=== PATIENT | female | born 1975 | race Caucasian/White ===

== ENCOUNTER → 2017-02-07 | Outpatient (CLI) | payer OTHER | LOC: FIMAGING 09:23 | DX: Z12.31 Encounter for screening mammogram for malignant neoplasm of breast (principal) | CPT/HCPCS: G0202 ==

== ENCOUNTER → 2018-02-13 | Outpatient (CLI) | payer OTHER | LOC: FIMAGING 10:51 | PROVIDERS: ATTEND Family Medicine | DX: Z12.31 Encounter for screening mammogram for malignant neoplasm of breast (principal) ==

== ENCOUNTER → 2018-05-26 | Outpatient (CLI) | payer OTHER | LOC: FIMAGING 10:16 | PROVIDERS: ATTEND Internal Medicine Cardiovascular Disease | DX: N28.89 Other specified disorders of kidney and ureter (principal); K76.0 Fatty (change of) liver, not elsewhere classified; R16.0 Hepatomegaly, not elsewhere classified ==

== ENCOUNTER 2018-10-05 03:32 | Inpatient (IN) | payer OTHER ==
--- NOTE | 2018-10-05 04:14 | EDPHY ---
H & P Stated Complaint: bilateral flank pain,abdominal pain,vomiting for 2 days Time Seen by Provider: 10/05/18 03:37 HPI/ROS: CC: Abdominal pain x 1 day HPI: This 43-year-old female with past medical history including hypertension and kidney stones presents to emergency department today complaining of abdominal pain. She states this sharp pain started yesterday at 3:00 p.m. but she had woken up in the morning with the feeling that she had air bubbles in her abdomen. The pain is now 10/10 and across the middle of her abdomen. It radiates to her back on both sides. She vomited once approximately 1 hr ago. She denies fever but has chills. She states she ate junk food all day a couple of days ago. She does not smoke and rarely drinks alcohol. She denies dysuria, hematuria, vaginal discharge, constipation, diarrhea. She is and has had a BTL. REVIEW OF SYSTEMS: Constitutional: See HPI. Eyes: No discharge. ENT: No sore throat. Respiratory: No cough, no shortness of breath. Cardiac: No chest pain, no palpitations. Gastrointestinal: See HPI. Genitourinary: No hematuria. No dysuria. Musculoskeletal: See HPI. Skin: No rashes. Neurological: No headache. Source: Patient Exam Limitations: No limitations - Personal History LMP (Females 10-55): 8-14 Days Ago Current Tetanus Diphtheria and Acellular Pertussis (TDAP): Yes Tetanus Vaccine Date: unsure - Medical/Surgical History PMH: PMH: Hypertension, palpitations, kidney stones, vaginal HSV PSH: , bilateral tubal ligation FH: Mother has a history of hypertension and high cholesterol; father has a history of hypertension, high cholesterol, gout, prostate cancer. NKDA Meds: Include losartan-hydrochlorothiazide, metoprolol, valacyclovir, Myrbetriq First day last menstrual period was approximately 2 weeks ago. She is 2 para 2. Her last Pap smear was normal. Primary care providers are the [facility]. 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 Hx Asthma: No Hx Chronic Respiratory Disease: No Hx Diabetes: No Hx Cardiac Disease: No Hx Renal Disease: No Hx Cirrhosis: No Hx Alcoholism: No Hx HIV/AIDS: No Hx Splenectomy or Spleen Trauma: No Other PMH: HTN, , migraines,irregular heartbeat,kidney stones - Social History Smoking Status: Never smoked Additional Social History: The patient is and has an 8-year-old and a 2-year-old. She denies tobacco products. She rarely drinks alcohol. She has rare marijuana use. No other recreational drugs. - Physical Exam Exam: General Appearance: Alert, moderate distress. Eyes: Pupils equal and round no pallor or injection. ENT, Mouth: Mucous membranes are moist. Respiratory: There are no retractions, lungs are clear to auscultation. Cardiovascular: Regular rate and rhythm. Gastrointestinal: Abdomen is soft, diffusely tender but more so across the upper abdomen, especially the epigastric and RUQ region. No R/G/R. Hyperactive bowel sounds. Neurological: Awake and alert, sensory and motor exams grossly normal. Skin: Warm and dry, no rashes. Musculoskeletal: Neck is supple, nontender. Extremities are symmetrical, full range of motion. Psychiatric: Patient is oriented X 3, there is no agitation. DIFFERENTIAL DIAGNOSIS: After history and physical exam differential diagnosis was considered for but not limited to and in no particular order: Gastritis, cholecystitis, cholelithiasis, pancreatitis, appendicitis, colitis, ileus, bowel obstruction, pyelonephritis, UTI, ectopic . Constitutional: Initial Vital Signs Temperature (C) 98.4 F 10/05/18 03:41 Heart Rate 72 10/05/18 03:41 Respiratory Rate 20 10/05/18 03:41 Blood Pressure 184/102 H 10/05/18 03:41 O2 Sat (%) 97 10/05/18 03:41 O2 Delivery Mode Room Air Allergies/Adverse Reactions: No Known Allergies Allergy (Verified 10/05/18 03:38) Home Medications: Medication Instructions Recorded Hydrochlorothiazide [HCTZ (*)] 05/18/18 Metoprolol Succinate [Kapspargo 05/18/18 Sprinkle] valACYclovir [Valtrex (*)] 05/18/18 Losartan-Hctz 100-12.5 mg Tab 10/05/18 Myrbetriq 10/05/18 Medical Decision Making - Diagnostics Imaging Results: The preliminary radiology report of the CT scan of the patient's abdomen and pelvis with IV contrast shows 1. Cystic lesion in the tail of the pancreas measuring nearly 4 cm in diameter. 2. Hepatomegaly and hepatic steatosis. 3. Nonobstructing 3 mm stone in the inferior pole of the right kidney. Imaging: Discussed imaging studies w/ yard caller Radiologist ED Course/Re-evaluation: The patient was seen and examined. Vital signs reviewed and revealed the patient to be afebrile but hypertensive throughout her stay. She last took her blood pressure meds at 7:00 p.m. last evening per usual. The patient's pain improved somewhat after 25 mcg of fentanyl and 15 mg of Toradol IV push. She also required 4 mg of Zofran IV push for her nausea. Her white count was slightly elevated and her comprehensive metabolic panel was mostly unremarkable. A CT scan of her abdomen and pelvis revealed a cystic lesion in the tail of the pancreas measuring nearly 4 cm in diameter, hepatomegaly and hepatic steatosis, and a nonobstructing 3 mm stone in the inferior pole of the right kidney. Her lipase eventually returned elevated at 3650. She was given a L of IV fluids and kept NPO. She will be admitted to the inpatient unit at the [facility] for further evaluation and treatment. Report given to accepting physician, Dr. Juani Ricks. - Data Points Laboratory Results: 10/05/18 10/05/18 10/05/18 03:55 03:49 03:49 POC Sodium 142 mEq/L mEq/L (135-145) POC Potassium 3.8 mEq/L mEq/L (3.3-5.0) POC Chloride 105.0 mEq/L mEq/L (97-110) POC Total CO2 23 mEq/L mEq/L (22-31) POC BUN 18 mg/dL mg/dL (7-23) POC Creatinine 0.9 mg/dL mg/dL (0.6-1.0) POC Glucose 111 mg/dL H mg/dL (70-100) POC Calcium 10.2 mg/dL mg/dL (8.5-10.4) POC Total Bilirubin 0.6 mg/dL mg/dL (0.1-1.4) POC AST 31 IU/L IU/L (14-46) POC ALT 35 IU/L IU/L (9-52) POC Alk Phosphatase 72 IU/L IU/L (38-126) POC Total Protein 8.6 g/dL H g/dL (6.3-8.2) POC Albumin 4.2 g/dL g/dL (3.5-5.0) Lipase 3650 IU/L H IU/L (23-300) Urine RBC 1-3 /hpf /hpf (0-3) Urine WBC 3-5 /hpf H /hpf (0-3) Ur Epithelial Cells TRACE /lpf /lpf (NONE-1+) Urine Bacteria TRACE /hpf H /hpf (NONE SEEN) Urine Mucus TRACE /lpf /lpf (NONE-1+) Medications Given: Discontinued Medications Fentanyl (Sublimaze) 25 mcg IVP EDNOW ONE Stop: 10/05/18 04:17 Last Admin: 10/05/18 04:26 Dose: 25 mcg Ketorolac Tromethamine (Toradol) 15 mg IVP EDNOW ONE Stop: 10/05/18 05:12 Last Admin: 10/05/18 05:20 Dose: 15 mg Ondansetron HCl (Zofran) 4 mg IVP EDNOW ONE Stop: 10/05/18 05:18 Last Admin: 10/05/18 05:20 Dose: 4 mg Point of Care Test Results: CBC CBC Collection Date 10/05/18 CBC Collection Time 03:45 WBC 12.26 RBC 4.51 HGB 14.2 HCT 40.6 PLT 220 Neut # 8.37 Neut 68.2 LYMPH # 3.00 LYMPH 24.5 MCV 90.0 Chemistry 10/05/18 03:55 POC Sodium 142 mEq/L mEq/L (135-145) POC Potassium 3.8 mEq/L mEq/L (3.3-5.0) POC Chloride 105.0 mEq/L mEq/L (97-110) POC Total CO2 23 mEq/L mEq/L (22-31) POC BUN 18 mg/dL mg/dL (7-23) POC Creatinine 0.9 mg/dL mg/dL (0.6-1.0) POC Glucose 111 mg/dL H mg/dL (70-100) POC Calcium 10.2 mg/dL mg/dL (8.5-10.4) POC Total Bilirubin 0.6 mg/dL mg/dL (0.1-1.4) POC AST 31 IU/L IU/L (14-46) POC ALT 35 IU/L IU/L (9-52) POC Alk Phosphatase 72 IU/L IU/L (38-126) POC Total Protein 8.6 g/dL H g/dL (6.3-8.2) POC Albumin 4.2 g/dL g/dL (3.5-5.0) Urine Collection Date 10/05/18 Collection Time 03:49 HCG Results Negative Urine Dip Collection Date 10/05/18 Collection Time 03:49 Specific [place]us (1.002-1.030) 1.025 PH (5.0-7.5) 6.0 Leukocytes (Negative) Trace Nitrites (Negative) Negative Protein (Negative) 1+ Glucose (Negative) Negative Ketones (Negative) Negative Urobilnogen (0.2-1.0 EU) 0.2 Bilirubin (Negative) Negative Blood (Negative) Trace Departure - Departure Disposition: [facility] Inpatient Acute Clinical Impression: Abdominal pain, Renal calculus, right, Pancreatic cyst, Pancreatitis, acute, Hypertension Condition: Good
[2018-10-05] MEDS ORDERED: fentaNYL 100 MCG/2 ML INJ IVP ONE (04:16)
[2018-10-05] MEDS ORDERED: IOPAMIDOL (ISOVUE-300) 100 ML BTL ONE (04:34)
[2018-10-05] MEDS ORDERED: KETOROLAC 15 MG/1 ML SDV IVP ONE (05:11)
[2018-10-05] MEDS ORDERED: ONDANSETRON 4 MG/2 ML VIAL ONE (05:16)
[2018-10-05] MEDS ORDERED: ONDANSETRON 4 MG/2 ML VIAL IVP ONE (05:17)
[2018-10-05] MEDS ORDERED: HYDROCOD/APAP 5/325 PREPACK#6 BTL TAKEHOME ONE (05:48)
[2018-10-05] MEDS ORDERED: ONDANSETRON 4MG PREPACK#2 BTL TAKEHOME ONE (05:49)
[2018-10-05] MEDS ORDERED: NS 1,000 ML IV ONE (06:13)
[2018-10-05] MEDS ORDERED: ONDANSETRON DISINTEGRATING 4 MG TAB PO PRN (07:13)
[2018-10-05] MEDS ORDERED: HYDROmorphONE/DILAUDID 1 MG/ML INJ IVP PRN (07:13)
[2018-10-05] MEDS ORDERED: LORazepam 2 MG/ML INJ IVP PRN (07:13)
[2018-10-05] MEDS ORDERED: NS 1,000 ML IV SCH (07:15)
[2018-10-05] MEDS ORDERED: NS W/ 20 KCl/L 1,000 ML IV SCH (08:30)
--- NOTE | 2018-10-05 08:55 | PDGENHP ---
History and Physical - Chief Complaint abdominal pain - History of Present Illness 43 yo female with h/o hypertension and nephrolithiasis presented to ED with abdominal pain. Her pain started yesterday morning and she described this as feeling bloated, like she couldn't pass a gas bubble in her stomach. Later in the afternoon, she had a linn, ice cream and a salad. Her pain became worse after this. During the night, she vomited once. No hematemesis or coffee ground emesis. She reports increased BM frequency, but no diarrhea, melena or BRBPR. No fevers or chills. Currently, her pain is 3-4/10 and is epigastric and RUQ. No CP or SOB. She denies regular heavy etoh use, but did mention having several drinks in the evening a couple of nights ago before the onset of her pain. She also has a family h/o hyperlipidemia. She denies h/o gallstones. She mentions several new medications. She has been on HCTZ for ~2 years. She was on Losartan in the past, which was d/c'd for unclear reasons. She recently restarted Losartan as well as Myrbetriq. There is no family h/o pancreatitis. In the ED, her lipase is 3600. Abdominal CT was abnormal with a possible cyst on the tail of the pancreas, formal radiology report is pending. She is admitted for further management. History Information - Allergies/Home Medication List Allergies/Adverse Reactions: No Known Allergies Allergy (Verified 10/05/18 03:38) Home Medications: Hydrochlorothiazide [HCTZ (*)] 25 mg PO DAILY 10/05/18 [Last Taken 10/04/18] Losartan Potassium [Cozaar 50 mg (*)] 50 mg PO HS 10/05/18 [Last Taken 10/04/18] Metoprolol Succinate Xr [Toprol Xl 50 mg (*)] 50 mg PO HS 10/05/18 [Last Taken 10/04/18] Mirabegron [Myrbetriq] 50 mg PO HS 10/05/18 [Last Taken 10/04/18] valACYclovir [Valtrex (*)] 500 mg PO DAILY 10/05/18 [Last Taken 10/03/18] I have personally reviewed and updated: family history, medical history, social history, surgical history - Past Medical History hypertension Additional medical history: nephrolithiasis - Surgical History Reports: no pertinent surgical hx - Family History Additional family history: mom and dad with hyperlipidemia - Social History Smoking Status: Never smoked Alcohol Use: Other (reports a few drinks a couple days a week) Drug Use: None Additional social history: Lives independently Review of Systems Review of Systems: ROS: 10pt was reviewed & negative except for what was stated in HPI & below Physical Exam Physical Exam: Temp Pulse Resp BP Pulse Ox 37.4 C 74 14 163/109 H 97 10/05/18 07:52 10/05/18 07:52 10/05/18 07:52 10/05/18 07:52 10/05/18 07:52 Constitutional: no apparent distress Eyes: PERRL Ears, Nose, Mouth, Throat: moist mucous membranes Cardiovascular: regular rate and rhythym, no murmur, rub, or gallop Respiratory: no respiratory distress, clear to auscultation Gastrointestinal: other (soft, nd, +RUQ TTP, mild epigastric TTP, no r/r/g, +BS) Skin: warm Musculoskeletal: full muscle strength Neurologic: AAOx3 Psychiatric: interacting appropriately Lab Data & Imaging Review 10/05/18 08:59 10/05/18 03:45 POC Sodium 142 mEq/L (135-145) 10/05/18 03:55 POC Potassium 3.8 mEq/L (3.3-5.0) 10/05/18 03:55 POC Chloride 105.0 mEq/L (97-110) 10/05/18 03:55 POC Total CO2 23 mEq/L (22-31) 10/05/18 03:55 POC BUN 18 mg/dL (7-23) 10/05/18 03:55 POC Creatinine 0.9 mg/dL (0.6-1.0) 10/05/18 03:55 POC Glucose 111 mg/dL (70-100) H 10/05/18 03:55 POC Calcium 10.2 mg/dL (8.5-10.4) 10/05/18 03:55 POC Total Bilirubin 0.6 mg/dL (0.1-1.4) 10/05/18 03:55 POC AST 31 IU/L (14-46) 10/05/18 03:55 POC ALT 35 IU/L (9-52) 10/05/18 03:55 POC Alk Phosphatase 72 IU/L (38-126) 10/05/18 03:55 POC Total Protein 8.6 g/dL (6.3-8.2) H 10/05/18 03:55 POC Albumin 4.2 g/dL (3.5-5.0) 10/05/18 03:55 Lipase 3650 IU/L (23-300) H 10/05/18 03:49 Urine RBC 1-3 /hpf (0-3) 10/05/18 03:49 Urine WBC 3-5 /hpf (0-3) H 10/05/18 03:49 Ur Epithelial Cells TRACE /lpf (NONE-1+) 10/05/18 03:49 Urine Bacteria TRACE /hpf (NONE SEEN) H 10/05/18 03:49 Urine Mucus TRACE /lpf (NONE-1+) 10/05/18 03:49 Assessment & Plan Assessment: Acute pancreatitis - unclear etiology, ?hastened by recent etoh intake though she denies heavy etoh use. Drug induced pancreatitis is a possibilty with recent resumption of losartan, which class Ib risk. HCTZ is also class III risk. Consider gallstones with RUQ tenderness, though LFT's nl and GB nl on CT. CT personally reviewed/interp, possible cyst tail of the pancreas. She is hemodynamically stable -NPO for bowel rest, IVF's for hydration -pain control -MRI w and w/o contrast to further evaluate pancreatic tail cyst -hold losartan and HCTZ for now, though she can likely resume the latter as she has been on this for ~2 years. -GI consult requested -check lipid panel -discussed avoidance of alcohol Hypertension - will hold losartan and HCTZ as above. Change Metoprolol to Labetalol for BP control. -up-titrate Labetalol as indicated Nephrolithiasis - sounds like stone is within the kidney parenchyma, unlikely to be symptomatic -monitor Full code Dispo - obs
[2018-10-05 09:04] LABS: PLATELET COUNT 195 10^3/uL (150-400)
[2018-10-05] MEDS: HYDROmorphONE/DILAUDID 1 MG/ML INJ IVP PRN ×3 (09:33→20:01)
[2018-10-05] MEDS: ONDANSETRON 4 MG/2 ML VIAL IVP PRN ×2 (10:14→20:02)
[2018-10-05] MEDS: LABETALOL HCL 100 MG TAB PO SCH ×2 (10:23→22:17)
[2018-10-05 10:32] LABS: INR 1.03 (0.83-1.16); PROTIME(PATIENT) 13.1 SEC (12.0-15.0)
[2018-10-05] MEDS ORDERED: GADOBUTROL 10 ML VIAL IVP ONE (12:56)
[2018-10-05] MEDS: KETOROLAC 15 MG/1 ML SDV IVP PRN ×2 (15:12→22:16)
--- NOTE | 2018-10-05 16:34 | SOAPPROG ---
RANJANA Progress Note Assessment/Plan: Dictation service presently down. Full dictated note to follow, once back up. Pancreatitis. No obvious cause. ? due to losartan (or less likely, HCTZ) ? primarily related to her tail cyst ? autoimmune or idiopathic - CA 19-9, IgG4 - no US needed (no gallstones or duct dilation on MRCP) - outpt EUS and FNA of cyst, once pancreatitis "cools" off - else, CPM Thanks! 10/05/18 16:31 Objective: Vital Signs Temp Pulse Resp BP Pulse Ox 36.9 C 77 14 151/95 H 95 10/05/18 15:40 10/05/18 15:40 10/05/18 15:40 10/05/18 15:40 10/05/18 15:40 Laboratory Results 10/05/18 08:59 10/04/18 10/05/18 10/06/18 05:59 05:59 05:59 Intake Total 1000 Balance 1000 PT 13.1 SEC (12.0-15.0) 10/05/18 09:59 INR 1.03 (0.83-1.16) 10/05/18 09:59 ICD10 Worksheet Patient Problems: Problems Problem Status Onset Abdominal pain Acute Hypertension Acute Pancreatic cyst Acute Pancreatitis, acute Acute Renal calculus, right Acute
--- NOTE | 2018-10-05 16:49 | PDMN ---
Medical Necessity Medical necessity: MCG M250 pancreatitis: 2 days- Lipase > 3 X ( 3650) , abd pain, NPO status ,abd CT shows poss cyst on tail of pancreas, anticipate > 2MN ongoing med nec care- further monitoring, eval and tx. IVF, NPO, pain control, MRI, GI consult pend.
[2018-10-05] MEDS: D5W 1/2 NS W/ 20 KCl/L 1,000 ML IV SCH (17:02)
[2018-10-05] MEDS: Mirabegron [Myrbetriq] 50 MG) PO SCH (22:16)
[2018-10-06] MEDS: HYDROmorphONE/DILAUDID 1 MG/ML INJ IVP PRN (01:28)
[2018-10-06] MEDS: ONDANSETRON 4 MG/2 ML VIAL IVP PRN ×2 (01:28→08:48)
[2018-10-06] MEDS: KETOROLAC 15 MG/1 ML SDV IVP PRN (04:52)
[2018-10-06] MEDS: D5W 1/2 NS W/ 20 KCl/L 1,000 ML IV SCH (04:53)
[2018-10-06 05:21] LABS: PLATELET COUNT 157 10^3/uL (150-400)
[2018-10-06] MEDS: LABETALOL HCL 100 MG TAB PO SCH ×2 (08:31→21:42)
[2018-10-06] MEDS ORDERED: oxyCODONE IR 5 MG TAB PO PRN (09:25)
[2018-10-06] MEDS ORDERED: LABETALOL HCL 100 MG TAB PO ONE ×2 (09:27→09:30)
--- NOTE | 2018-10-06 09:35 | HOSPPROG ---
Hospitalist Progress Note Assessment/Plan: Acute pancreatitis - unclear etiology, ?drug induced (losartan is class Ib, HCTZ class III) vs related to 4 cm indeterminate pancreatic tail cyst vs idiopathic. Could be hastened by recent etoh use. No e/o gallstones and no ductal dilatation. LFT's nl. TG's mildly elevated, but doubt this is causative. MRI reviewed, possibly pseudocyst vs mucinous cystic pancreatic tumor, neuroendocrine tumor or less likely epithelial cyst. She remains hemodynamically stable -cont NPO for bowel rest, IVF's for hydration -pain control: scheduled toradal is most effective, prn IV dilaudid (she doesn't like side effects from this), will add oral oxy -cont to hold losartan and HCTZ -GI following, will need EUS and FNA as outpt once acute pancreatitis cools off -discussed avoidance of alcohol Hypertension - as above, cont to hold losartan and HCTZ. Changed Metoprolol to Labetalol for BP control. -up-titrate Labetalol to 200 mg BID Nephrolithiasis - stone is within the kidney parenchyma, unlikely to be symptomatic -monitor Full code Dispo - change to inpt for ongoing management of acute pancreatitis. Subjective: Pt had increased pain overnight, up to 9. Toradol most helpful. She doesn't like the feeling of IV dilaudid. No fevers/chills. No N/V. Feels like she needs to have BM. Remains NPO. Good uop. Objective: Vital Signs Temp Pulse Resp BP Pulse Ox 37.3 C 75 16 162/99 H 95 10/06/18 07:41 10/06/18 08:31 10/06/18 07:41 10/06/18 08:31 10/06/18 07:41 Laboratory Results 10/06/18 04:29 10/06/18 04:29 10/05/18 10/06/18 10/07/18 05:59 05:59 05:59 Intake Total 1000 Output Total 1000 Balance 0 PT 13.1 SEC (12.0-15.0) 10/05/18 09:59 INR 1.03 (0.83-1.16) 10/05/18 09:59 - Physical Exam Constitutional: no apparent distress Eyes: PERRL Ears, Nose, Mouth, Throat: moist mucous membranes Cardiovascular: regular rate and rhythym Respiratory: no respiratory distress, clear to auscultation Gastrointestinal: normoactive bowel sounds, soft, non-tender abdomen Skin: warm Musculoskeletal: full muscle strength Neurologic: AAOx3 Psychiatric: interacting appropriately ICD10 Worksheet Patient Problems: Problems Problem Status Onset Abdominal pain Acute Hypertension Acute Pancreatic cyst Acute Pancreatitis, acute Acute Renal calculus, right Acute
[2018-10-06] MEDS: D5W NS W/ 20 KCl/L 1,000 ML IV SCH ×2 (10:13→19:30)
[2018-10-06] MEDS: ENOXAPARIN 40 MG/0.4 ML SYR SC SCH (10:33)
[2018-10-06] MEDS: KETOROLAC 15 MG/1 ML SDV IVP SCH ×2 (11:19→18:23)
--- NOTE | 2018-10-06 12:01 | SOAPPROG ---
SOAP Progress Note Assessment/Plan: A/P Pancreatitis. ? due to losartan (or less likely, HCTZ) ? primarily related to her tail cyst ? autoimmune or idiopathic Lipase improved. Still with some pain, tenderness. - CA 19-9, IgG4 pending - decrease IVF - Cont. NPO except for today - recheck lipase tomorrow - outpt EUS and FNA of cyst, once pancreatitis "cools" off 10/06/18 11:58 Subjective: cc: pancreatitis Pain better, but still present, with tenderness. Not hungry. No rigors, chills , sweats. Objective: Vital Signs Temp Pulse Resp BP Pulse Ox 36.7 C 87 16 140/96 H 94 10/06/18 11:56 10/06/18 11:56 10/06/18 11:56 10/06/18 11:56 10/06/18 11:56 Laboratory Results 10/06/18 04:29 10/06/18 04:29 10/05/18 10/06/18 10/07/18 05:59 05:59 05:59 Intake Total 1000 Output Total 1000 400 Balance 0 -400 PT 13.1 SEC (12.0-15.0) 10/05/18 09:59 INR 1.03 (0.83-1.16) 10/05/18 09:59 Lipase 1550 CA 19-9, IgG4 pending Physical Exam - Physical Exam General Appearance: WD/WN, alert, no apparent distress EENT: PERRL/EOMI, normal ENT inspection, pharynx normal, TMs normal Neck: non-tender, full range of motion, supple, normal inspection Respiratory: chest non-tender, lungs clear, normal breath sounds Cardiac/Chest: normal peripheral pulses, regular rate, rhythm Peripheral Pulses: 2+: carotid (R), carotid (L), femoral (R), femoral (L), dorsalis-pedis (R), dorsalis-pedis (L) Abdomen: normal bowel sounds, soft, No non-tender (epigastric moderate tenderness) Pelvic Exam: deferred Rectal: deferred Back: Normal inspection Skin: normal color, warm/dry Lymphatic: no adenopathy Extremities: normal range of motion, non-tender, normal inspection, normal capillary refill Neuro/Psych: no motor/sensory deficits, alert, normal mood/affect, oriented x 3 ICD10 Worksheet Patient Problems: Problems Problem Status Onset Abdominal pain Acute Hypertension Acute Pancreatic cyst Acute Pancreatitis, acute Acute Renal calculus, right Acute
--- NOTE | 2018-10-06 12:03 | GCON ---
[f rep st] CONSULTATION GI INPATIENT CONSULTATION DATE OF CONSULTATION: 10/05/2018 REFERRING PHYSICIAN: Adriana Fields MD I was kindly requested to see the patient by Dr. Adriana Fields in consultation for a chief complaint of pancreatitis. She is a 43-year-old white female who presented to the hospital, feeling bloated. She had a gassy pain in her epigastric area. With this, she vomited once. The pain can also involve the right upper quadrant. She describes it as a 4/10 in intensity. In the emergency department, she was found to have a lipase of 3650 and was admitted. She denies a history of heavy alcohol use. She can have several drinks over the weekend, but only a few, and does not usually drink during the week. She was recently placed on losartan. She is also on hydrochlorothiazide, but has been on this for several years. PAST MEDICAL HISTORY: 1. As above. 2. Hypertension. 3. Kidney stones. 4. Otherwise noncontributory. MEDICATIONS: Outpatient medications include the above. She was also recently started on Myrbetriq. Inpatient medications include IV fluids, labetalol. ALLERGIES: No known drug allergies. SOCIAL HISTORY: As above. FAMILY HISTORY: Negative for similar abdominal pain. REVIEW OF SYSTEMS: Positive pertinent review of systems as per my HPI. Otherwise, complete review of systems is negative. PHYSICAL EXAM: CONSTITUTIONAL: Nontoxic. VITAL SIGNS: Stable. SKIN: Warm, dry. EYES: Pupils equal, round, and reactive to light and accommodation. EARS , NOSE, MOUTH, AND THROAT: Oropharynx without masses. Moist mucosa. CARDIOVASCULAR: Normal S2, normal PMI. RESPIRATORY: Lungs clear to auscultation and percussion anteriorly. GASTROINTESTINAL: Abdomen now essentially nontender. No masses felt. NEUROLOGIC: Grossly nonfocal, cranial nerves grossly intact. PSYCHIATRIC: Orientation, insight appropriate. MUSCULOSKELETAL: Strength grossly normal throughout, normal station. LABORATORIES: Include the above. CT scan of the abdomen and pelvis with IV contrast shows a well-circumscribed 4 cm cystic lesion in the pancreatic tail. There is some surrounding edema. Fatty liver. Kidney stones. MRCP shows the same, with a normal gallbladder and normal biliary ducts. White count 10.4 thousand, hematocrit 36.9%. Normal liver function tests. Normal CMP. Triglycerides 267. ASSESSMENT: Pancreatitis. This could be related to her 4 cm cyst in her pancreatic tail. The other strong possibility could be drug-induced pancreatitis from losartan. Hydrochlorothiazide can cause this as well, although she has been on this for several years. No reports with Myrbetriq. Otherwise idiopathic (or unlikely autoimmune) pancreatitis is possible. MRCP shows no obvious biliary cause. PLAN: 1. Allowed sips of water, ice chips. 2. Recheck lipase in the morning. 3. With the above MRCP results, no ultrasound is needed. 4. CA 19-9. 5. Blood for IgG4. 6. When she recovers, as an outpatient suspect she will need an endoscopic ultrasound and fine-needle aspiration of her pancreatic tail cyst. Thank you for allowing me to help in the management of this patient. /[id number]/MODL MTDDavid
--- NOTE | 2018-10-06 13:53 | ASMTCMCOM ---
CM Note CM Note Notes: Pt in with acute pancreatitis. No therapies ordered. CM to follow pt progress. Pt likely independent. Date Signed: 10/06/2018 01:52 PM Electronically Signed By:NOLVIA Welch
[2018-10-06] MEDS: ACETAMINOPHEN 325 MG TAB PO PRN (17:29)
[2018-10-06] MEDS: Mirabegron [Myrbetriq] 50 MG) PO SCH (21:43)
[2018-10-06] MEDS ORDERED: traMADol 50 MG TAB PO PRN (22:11)
[2018-10-07] MEDS: KETOROLAC 15 MG/1 ML SDV IVP SCH ×3 (00:04→12:25)
[2018-10-07] MEDS: ONDANSETRON 4 MG/2 ML VIAL IVP PRN (08:39)
[2018-10-07] MEDS: ACETAMINOPHEN 325 MG TAB PO PRN (09:15)
[2018-10-07] MEDS: LABETALOL HCL 100 MG TAB PO SCH (09:15)
[2018-10-07] MEDS: ENOXAPARIN 40 MG/0.4 ML SYR SC SCH (09:28)
--- NOTE | 2018-10-07 11:16 | ASMTLACE ---
LACE Length of stay for Answers: 2 days current admission Acuity / Level of Answers: Yes Care: Did the patient have an inpatient admission? Comorbidities - select Answers: Other Notes: HTN all that apply # of Emergency department Answers: 1-2 visits in the last 6 months Score: 7 Date Signed: 10/07/2018 11:15 AM Electronically Signed By:Sharda Carbajal RN
--- NOTE | 2018-10-07 11:18 | ASMTDCNOTE ---
Case Management Discharge Discharge Order Complete? Answers: Yes Patient to Obtain Answers: Independently Medications Transportation Arranged Answers: Family/Friends Family Notified Answers: Yes Discharge Comments Notes: Patient has been medically cleared for independent discharge. No needs identified. CM available should needs arise. Date Signed: 10/07/2018 11:17 AM Electronically Signed By:Sharda Carbajal RN
--- NOTE | 2018-10-07 12:16 | SOAPPROG ---
SOAP Progress Note Assessment/Plan: A/P Pancreatitis. ? due to losartan (or less likely, HCTZ) ? primarily related to her tail cyst ? autoimmune or idiopathic Lipase now almost normal, and essentially without pain. - feed - ok to d/c home - no further outpt losartan or, to be safe, HCTZ (lots of other options for anti -hypertensives). We will consider these allergies for her. - I will arrange outpt EUS and FNA of cyst, once pancreatitis "cools" off - Else, f/u PCP Thanks! I will f/u up on pending blood work for CA 19-9 and IgG4. 10/07/18 12:13 Subjective: cc: pancreatitis Pain essentially gone. Tolerated clears. No rigors, chills, sweats. Objective: Vital Signs Temp Pulse Resp BP Pulse Ox 36.6 C 68 16 150/89 H 96 10/07/18 07:34 10/07/18 09:15 10/07/18 07:34 10/07/18 09:15 10/07/18 07:34 Laboratory Results 10/06/18 04:29 10/06/18 04:29 10/06/18 10/07/18 10/08/18 05:59 05:59 05:59 Intake Total 1000 250 900 Output Total 1000 1600 Balance 0 -1350 900 PT 13.1 SEC (12.0-15.0) 10/05/18 09:59 INR 1.03 (0.83-1.16) 10/05/18 09:59 CA 19-9, IgG 4 pending. Physical Exam - Physical Exam General Appearance: WD/WN, alert, no apparent distress EENT: PERRL/EOMI, normal ENT inspection, pharynx normal, TMs normal Neck: non-tender, full range of motion, supple, normal inspection Respiratory: chest non-tender, lungs clear, normal breath sounds Cardiac/Chest: normal peripheral pulses, regular rate, rhythm Peripheral Pulses: 2+: carotid (R), carotid (L), femoral (R), femoral (L), dorsalis-pedis (R), dorsalis-pedis (L) Abdomen: normal bowel sounds, non-tender, soft Pelvic Exam: deferred Rectal: deferred Back: Normal inspection Skin: normal color, warm/dry Lymphatic: no adenopathy Extremities: normal range of motion, non-tender, normal inspection, normal capillary refill Neuro/Psych: no motor/sensory deficits, alert, normal mood/affect, oriented x 3 ICD10 Worksheet Patient Problems: Problems Problem Status Onset Abdominal pain Acute Hypertension Acute Pancreatic cyst Acute Pancreatitis, acute Acute Renal calculus, right Acute
[2018-10-07 12:17] VITALS: BP 136/93
--- NOTE | 2018-10-07 17:43 | GDS ---
[f rep st] DISCHARGE SUMMARY DISCHARGE DIAGNOSES: 1. Acute pancreatitis, unclear etiology, possibly drug induced versus related to the pancreatic tail cyst versus idiopathic. 2. Pancreatic tail cyst of unclear etiology. 3. Hypertension. 4. Nephrolithiasis, asymptomatic. CONSULTANTS: Dr. Grady Lutz, gastroenterology. HISTORY OF DETAILS: Please see History and Physical dated October 05, 2018. In brief, the patient is a 43-year-old female with history of hypertension, who presented to the emergency department with abd ominal pain. CT was performed in the emergency department, which shows evidence of pancreatitis, as well as a 4 cm pancreatic tail cyst. Her lipase was elevated at 3600. She was admitted to the [facility] for further management. HOSPITAL COURSE: The patient was admitted to the med/surg unit. She was made n.p.o. for bowel rest and her pain was controlled. She was given IV fluids. She underwent an MRI with and without contras t for further evaluation of the pancreatic tail cyst. This remains indeterminate by MRI findings. T he differential including pseudocyst, versus a mucinous cystic pancreatic tumor, versus a cystic panc reatic neuroendocrine tumor, or less likely a pancreatic epithelial cyst. Gastroenterology consult w as obtained and it was recommended she undergo endoscopic ultrasound with fine-needle aspiration. Th is can be done in the outpatient setting once her pancreatitis has cooled off. Her symptoms improved . She was pain free on the day of discharge and was able to tolerate a diet without recurrent pain. Consideration was given to drug-induced pancreatitis, as she had recently restarted losartan prior t o onset of her symptoms. This is a class 1B pancreatitis risk medication. In addition, hydrochlorot hiazide is a class 3 risk medication. However, she has been on hydrochlorothiazide for a couple of y ears, so I doubt that is causative. However, I have held both her losartan and hydrochlorothiazide, as well as her metoprolol and instead I started her on labetalol for blood pressure control. This wa s up-titrated to 200 mg p.o. b.i.d. and her blood pressures have been fairly well controlled on this monotherapy. DISPOSITION: The patient is discharged home in stable condition. FOLLOWUP: 1. Dr. Carroll Hay, GI of [facility], for endoscopic ultrasound and fine-needle aspiration of the somers creatic tail cyst. 2. The patient is referred to Dr. Magdalena Rodarte, primary care, as she wishes to reestablish with a jesse darden primary care physician. DISCHARGE MEDICATIONS: Please see delicious for complete and updated medication list. Medications on discharge include: Tylenol 650 p.o. q.4 hours p.r.n., labetalol 200 mg p.o. b.i.d., #60, no refills ; and tramadol 50 mg p.o. q.6 hours p.r.n., #20, no refills. She will continue all other outpatient medications as previously prescribed. Discontinued medications: Losartan is discontinued due to the risk this may have hastened her pancre atitis. Metoprolol and hydrochlorothiazide were discontinued in favor of labetalol. /[id number]/MODL
== END 2018-10-07 14:13 | disposition home or self-care (01) | DRG 439 ==
LOC: CED 03:32 → CEDHOLD 06:05 → F3N 07:51
PROVIDERS: ADMIT Hospitalist; ATTEND Family Medicine
DX: K85.30 Drug induced acute pancreatitis without necrosis or infection (principal); K86.2 Cyst of pancreas; T46.5X5A Adverse effect of other antihypertensive drugs, initial encounter; I10 Essential (primary) hypertension; N20.0 Calculus of kidney; E86.9 Volume depletion, unspecified; B00.9 Herpesviral infection, unspecified
CPT/HCPCS: 74177-PO; 80053-ER; 81025-ER; 85025-QW-ER; 86301-90; 96361-ER; 96374-ER; 96375-ER; 99285-ER; A9585; J1170; J1650; J1885; J2405; J3010; Q9967

== ENCOUNTER 2018-10-27 06:32 | Day surgery (SDC) | payer OTHER ==
[2018-10-27] MEDS ORDERED: LR 1,000 ML IV ONE (07:20)
[2018-10-27] MEDS ORDERED: levOFLOXACIN 500 MG/DEXTROSE 100 ML IV ONE (07:40)
[2018-10-27] MEDS ORDERED: INDOMETHACIN 50 MG SUPP PR PRN (07:40)
--- NOTE | 2018-10-27 07:40 | PDGENHP ---
History & Physical Chief Complaint: pancreatic cyst History of Present Illness: 43 year old female presents for evaluation of a pancreatic cyst. Had recent epsiode of idiopathic pancreatitis. Cyst seen on admission. Pertinent Past, Social, Family History: PMHx: htn, pancreatitis. FaMHx: hyperlipidemia. No panc pathology. SoHx: No cigs. Social etoh Relevant Physical Exam: GEN: AAO x 3. HEENT: anicteric. CV: RRR +s1s2. Lungs ; CTAB Cardiorespiratory Assessment: ASA 2
[2018-10-27] MEDS ORDERED: NS 500 ML IV SCH (07:45)
[2018-10-27] MEDS ORDERED: levOFLOXACIN 500 MG/DEXTROSE/100 ML BAG IV ONE (07:54)
--- NOTE | 2018-10-27 08:10 | PDANEPAE ---
ANE History of Present Illness pancreatitis ANE Past Medical History - Cardiovascular History Hx Hypertension: Yes Hx Arrhythmias: Yes Hx Chest Pain: No Hx Coronary Artery / Peripheral Vascular Disease: No Hx CHF / Valvular Disease: No Hx Palpitations: Yes Cardiovascular History Comment: Benign irregular heartbeat, pt on beta-sweetie. - Pulmonary History Hx COPD: No Hx Asthma/Reactive Airway Disease: No Hx Recent Upper Respiratory Infection: No Hx Oxygen in Use at Home: No Hx Sleep Apnea: No Sleep Apnea Screening Result - Last Documented: Negative - Neurologic History Hx Cerebrovascular Accident: No Hx Seizures: No Hx Dementia: No - Endocrine History Hx Diabetes: No Hypothyroid: No Hyperthyroid: No Obesity: no - Renal History Hx Renal Disorders: Yes Renal History Comment: Nephrolithiasis. Pt currently has kidney stone on CT. - Liver History Hx Hepatic Disorders: No - Neurological & Psychiatric Hx Hx Neurological and Psychiatric Disorders: No - Cancer History Hx Cancer: No - Congenital Disorder History Hx Congenital Disorders: No - GI History GERD: no Hx Gastrointestinal Disorders: Yes Gastrointestinal History Comment: Idiopathic versus drug related pancreatis. Pancreatic tail cyst. GERD - Other Health History Other Health History: Mild hearing impairment w/ hearing aids. Genital herpes - Chronic Pain History Chronic Pain: No - Surgical History Prior Surgeries: and tubal ligation 2009. Urethral stone removal 2017. Lithotripsy 2017 ANE Review of Systems Review of systems is: negative Review of Systems: - Exercise capacity METS (RN): 4 METS ANE Patient History - Allergies Allergies/Adverse Reactions: hydrochlorothiazide Allergy (Verified 10/07/18 12:18) losartan Allergy (Verified 10/06/18 12:02) - Home Medications Home medications: home medication list seen and reviewed Home Medications: Mirabegron [Myrbetriq] 50 mg PO HS 10/05/18 [Last Taken 3 Days Ago ~10/24/18] valACYclovir [Valtrex (*)] 500 mg PO DAILY 10/05/18 [Last Taken 10/25/18] - NPO status NPO Status: no food or drink >8 hours NPO Since - Liquids (Date): 10/26/18 NPO Since - Liquids (Time): 18:00 NPO Since - Solids (Date): 10/26/18 NPO Since - Solids (Time): 22:00 - Anes Hx Anes Hx: no prior problems - Smoking Hx Smoking Status: Never smoked - Family Anes Hx Family Anes Hx: none Family Hx Anesthesia Complications: None. ANE Labs/Vital Signs - Vital Signs Blood Pressure: 169/106 Heart Rate: 80 Respiratory Rate: 16 O2 Sat (%): 95 Height: 167.64 cm Weight: 85.275 kg ANE Physical Exam - Airway Neck exam: FROM Mallampati Score: Class 2 Mouth exam: normal dental/mouth exam - Pulmonary Pulmonary: no respiratory distress, clear to auscultation - Cardiovascular Cardiovascular: regular rate and rhythym, no murmur, rub, or gallop - ASA Status ASA Status: II ANE Anesthesia Plan Anesthesia Plan: GA with mask
[2018-10-27] MEDS ORDERED: PROPOFOL/EMULSION 500 MG/50 ML BOTTLE IV ONE (08:13)
[2018-10-27] MEDS ORDERED: MIDAZOLAM 2 MG/2 ML VIAL ONE (08:13)
[2018-10-27] MEDS ORDERED: NALOXONE HCL 0.4 MG/ML INJ IVP PRN (08:28)
[2018-10-27] MEDS ORDERED: LABETALOL HCL 5 MG/ML 20 ML MDV IVP PRN (08:28)
--- NOTE | 2018-10-27 08:29 | POSTANESTH ---
Post Anesthetic Evaluation Cardiovascular Status: Normal, Stable Respiratory Status: Normal, Stable Level of Consciousness/Mental Status: Can Participate in Eval Pain Control: Adequate, Prn Tx Ordered Nausea/Vomiting Control: Adequate, Prn Tx Ordered Complications Possibly Related to Anesthesia: None Noted
[2018-10-27] MEDS ORDERED: METOPROLOL TARTRATE 5 MG/5 ML INJ ONE (08:31)
[2018-10-27] MEDS ORDERED: PROPOFOL 200 MG/20 ML VIAL ONE (08:39)
--- NOTE | 2018-10-27 09:29 | GIREPORT ---
[facility] - Endoscopy Department Patient Name: Sourav Lubin Procedure Date: 10/27/2018 7:39 AM Patient Type: Ambulatory Attending MD/ ER Physician: Carroll Hay MD Procedure: Upper EUS Indications: Pancreatic cyst, Epigastric abdominal pain, Heartburn Patient Profile: 43 year old female with an episode of pancreatitis presents for evaluat ion of pancreatitis, pancreatic cyst, epigastric pain, and heartburn. She h ad an episode of pancreatitis and on imaging on admission had a 4cm cyst in t he the tail of the pancreas. Providers: Carroll Hay MD Medicines: Monitored Anesthesia Care Complications: No immediate complications. Estimated blood loss: Minimal. Description of Procedure: After obtaining informed consent, the endoscope was passed under direct vision. Throughout the procedure, the patient's blood pressure, pulse, and oxygen saturations were monitored continuously. The Endoscope was intro duced through the mouth, and advanced to the second part of duodenum. The Endosonoscope was introduced through the mouth, and advanced to the sec ond part of duodenum. The upper EUS was accomplished without difficulty. Th e esophagus, stomach, and duodenum were visualized endosonographically. T he patient tolerated the procedure well. Findings: ENDOSCOPIC FINDING: : The Z-line was irregular. Biopsies were taken with a cold forceps for histology. A hiatal hernia was present. Patchy mildly erythematous mucosa was found in the gastric body and in the gastric antrum. Biopsies were taken with a cold forceps for histology. The examined duodenum was normal. Biopsies for histology were taken wit h a cold forceps for evaluation of celiac disease. ENDOSONOGRAPHIC FINDING: : An anechoic lesion suggestive of a cyst was identified in the pancreati c tail. It is not in obvious communication with the pancreatic duct. The lesion measured 38 mm by 38 mm in maximal cross-sectional diameter. The re was a single compartment without septae. The outer wall of the lesion w as not seen. There was no associated mass. There was internal debris withi n the fluid-filled cavity. Fine needle aspiration for cytology was performed. Color Doppler imaging was utilized prior to needle puncture to confirm a lack of significant vascular structures within the needle path. One pas s was made with the 22 gauge needle using a transgastric approach. A stylet w as used. A physics professor was present and performed a preliminary cytologic examination. At least 10cc of fluid was aspirated. Will be sent for CEA and amylase. Slides were made and the rest was placed into Cytolyte. Pancreatic parenchymal abnormalities were noted in the entire pancreas. These consisted of hyperechoic foci. There was no sign of significant endosonographic abnormality in the com mon bile duct. Gallbladder was normal. There was no sign of significant endosonographic abnormality in the visualized portion of the liver. No masses were identified. No lymphadenopathy seen. Estimated Blood Loss: Estimated blood loss was minimal. Post Op Diagnosis: - Z-line irregular. Biopsied. - Hiatal hernia. - Erythematous mucosa in the gastric body and antrum. Biopsied. - Normal examined duodenum. Biopsied. - A cystic lesion was seen in the pancreatic tail. Fine needle aspirati on performed. - Pancreatic parenchymal abnormalities consisting of hyperechoic foci w ere noted in the entire pancreas. - There was no sign of significant pathology in the common bile duct. - There was no evidence of significant pathology in the visualized port ion of the liver. - Etiology? Await cytology results. Recommendation: - Discharge patient to home (with escort). - Clear liquid diet. - Continue present medications. - Cipro (ciprofloxacin) 500 mg PO BID for 5 days. - Await cytology results and await path results. - Thank you for allowing me to participate in the care of your patient. Attending Participation: I personally performed the entire procedure. Carroll Hay MD Carroll Hay MD 10/27/2018 9:28:48 AM This report has been signed electronicallyCarroll Hay MD Number of Addenda: 0 Note Initiated On: 10/27/2018 7:39 AM [email or web address]
[2018-10-27 10:33] VITALS: BP 134/97
== END 2018-10-27 10:55 | disposition home or self-care (01) ==
LOC: FSGY 06:32
PROVIDERS: ATTEND Internal Medicine Gastroenterology
DX: K86.2 Cyst of pancreas (principal); K85.00 Idiopathic acute pancreatitis without necrosis or infection; I10 Essential (primary) hypertension; Z87.442 Personal history of urinary calculi; B00.9 Herpesviral infection, unspecified
CPT/HCPCS: J1956; J2250; J2704

== ENCOUNTER 2018-11-05 15:24 | Emergency (ER) | payer OTHER ==
[2018-11-05] MEDS ORDERED: ONDANSETRON 4 MG/2 ML VIAL ONE (15:48)
[2018-11-05] MEDS ORDERED: NS 1,000 ML IV ONE (15:48)
--- NOTE | 2018-11-05 15:48 | EDPHY ---
H & P Stated Complaint: abd / low back pain x 1 week, hx pancreatitis Time Seen by Provider: 11/05/18 15:48 HPI/ROS: CHIEF COMPLAINT: [ ] HISTORY OF PRESENT ILLNESS: [Need 4: Location, Duration, Severity, Quality, Context, Timing Modifying Factors, Associated S&S] REVIEW OF SYSTEMS: A comprehensive 10 point review of systems is otherwise negative aside from elements mentioned in the history of present illness. Source: Patient Exam Limitations: No limitations - Personal History LMP (Females 10-55): Over 28 Days Ago Tetanus Vaccine Date: unsure - Medical/Surgical History Hx Asthma: No Hx Chronic Respiratory Disease: No Hx Diabetes: No Hx Cardiac Disease: No Hx Renal Disease: No Hx Cirrhosis: No Hx Alcoholism: No Hx HIV/AIDS: No Hx Splenectomy or Spleen Trauma: No Other PMH: HTN, , migraines,irregular heartbeat,kidney stones, pancreatitis - Social History Smoking Status: Never smoked - Physical Exam Exam: General Appearance: [Alert, no distress] Eyes: [Pupils equal and round no pallor or injection] ENT, Mouth: [Mucous membranes moist] Respiratory: [There are no retractions, lungs are clear to auscultation] Cardiovascular: [Regular rate and rhythm] Gastrointestinal: [Abdomen is soft and nontender, no masses, bowel sounds normal] Neurological: [A&O, normal motor function, normal sensory exam, normal cranial nerves] Skin: [Warm and dry, no rashes] Musculoskeletal: [Neck is supple nontender] Extremities: [symmetrical, full range of motion] Psychiatric: [Patient is oriented X 3, there is no agitation] Constitutional: Initial Vital Signs Temperature (C) 36.8 C 11/05/18 15:28 Heart Rate 76 11/05/18 15:28 Respiratory Rate 16 11/05/18 15:28 Blood Pressure 185/128 H 11/05/18 15:28 O2 Sat (%) 99 11/05/18 15:28 O2 Delivery Mode Room Air Allergies/Adverse Reactions: hydrochlorothiazide Allergy (Verified 10/07/18 12:18) losartan Allergy (Verified 10/06/18 12:02) Home Medications: Medication Instructions Recorded valACYclovir [Valtrex (*)] 500 mg PO DAILY 10/05/18 Acetaminophen [Tylenol 325mg (*)] 650 mg PO Q4HRS PRN tab 10/07/18 Labetalol HCl [Trandate 200 mg (*)] 200 mg PO BID #60 tab 10/07/18 traMADol [Ultram 50 mg (*)] 50 mg PO Q6HRS PRN #20 tab 10/07/18 Departure - Departure Referrals: Magdalena Rodarte MD [Primary Care Provider] - As per Instructions
[2018-11-05] MEDS ORDERED: ONDANSETRON 4 MG/2 ML VIAL IVP ONE (15:50)
[2018-11-05] MEDS ORDERED: HYDROmorphONE/DILAUDID 2 MG/ML INJ IVP ONE (15:59)
--- NOTE | 2018-11-05 15:59 | EDPHY ---
H & P Stated Complaint: abd / low back pain x 1 week, hx pancreatitis Time Seen by Provider: 11/05/18 15:48 HPI/ROS: CHIEF COMPLAINT: Mid abdominal pain HISTORY OF PRESENT ILLNESS: The patient presents the ED with a one-week history of constant abdominal pain. The patient was diagnosed with idiopathic pancreatitis approximately a month ago. During that hospitalization she was noted to have a pancreatic cyst which was biopsied and found to be benign. The patient was taken off of her medications for hypertension including losartan hydrochlorothiazide. She was started on labetalol. She reports that she has been using tramadol fairly constantly over the past week secondary to under and pain. She denies any melena or hematemesis. She denies alcohol use. She did have a gallbladder evaluated during her last hospitalization and no pathology was noted. Patient reports that her pain is moderate to severe in nature. REVIEW OF SYSTEMS: A comprehensive 10 point review of systems is otherwise negative aside from elements mentioned in the history of present illness. Source: Patient Exam Limitations: No limitations - Personal History LMP (Females 10-55): Over 28 Days Ago Tetanus Vaccine Date: unsure - Medical/Surgical History Hx Asthma: No Hx Chronic Respiratory Disease: No Hx Diabetes: No Hx Cardiac Disease: No Hx Renal Disease: No Hx Cirrhosis: No Hx Alcoholism: No Hx HIV/AIDS: No Hx Splenectomy or Spleen Trauma: No Other PMH: HTN, , migraines,irregular heartbeat,kidney stones, pancreatitis - Social History Smoking Status: Never smoked - Physical Exam Exam: General Appearance: Alert, no distress Eyes: Pupils equal and round no pallor or injection ENT, Mouth: Mucous membranes moist Respiratory: There are no retractions, lungs are clear to auscultation Cardiovascular: Regular rate and rhythm Gastrointestinal: Diffuse mid abdominal tenderness, no peritoneal signs, normal bowel sounds Neurological: 5/5 strength noted all 4 extremities Skin: Warm and dry, no rashes Musculoskeletal: Neck is supple nontender Extremities: symmetrical, full range of motion Psychiatric: Patient is oriented X 3, there is no agitation Constitutional: Initial Vital Signs Temperature (C) 36.8 C 11/05/18 15:28 Heart Rate 76 11/05/18 15:28 Respiratory Rate 16 11/05/18 15:28 Blood Pressure 185/128 H 11/05/18 15:28 O2 Sat (%) 99 11/05/18 15:28 O2 Delivery Mode Room Air O2 (L/minute) 2 Allergies/Adverse Reactions: hydrochlorothiazide Allergy (Verified 10/07/18 12:18) losartan Allergy (Verified 10/06/18 12:02) Home Medications: Medication Instructions Recorded valACYclovir [Valtrex (*)] 500 mg PO DAILY 10/05/18 Acetaminophen [Tylenol 325mg (*)] 650 mg PO Q4HRS PRN tab 10/07/18 Labetalol HCl [Trandate 200 mg (*)] 200 mg PO BID #60 tab 10/07/18 traMADol [Ultram 50 mg (*)] 50 mg PO Q6HRS PRN #20 tab 10/07/18 Ondansetron Odt [Zofran Odt] 4 mg PO Q4PRN PRN #20 tab 11/05/18 oxyCODONE/APAP 5/325 [Percocet 1 - 2 tab PO Q6-8PRN PRN #20 tab 11/05/18 5/325 (RX)] Medical Decision Making ED Course/Re-evaluation: The patient has a history of recently diagnosed idiopathic pancreatitis. She presents the ED with a week of ongoing mid abdominal pain. The patient is nontoxic well-appearing. She has a benign abdominal examination aside from mild tenderness. I reviewed her past records and results of her biopsy. Patient was noted to have a slight elevation of her lipase at 900 from her prior discharge lipase of 500. She was treated with a half a mg of Dilaudid in the emergency department and had complete resolution for pain. The patient was offered admission to the hospital for IV fluid hydration and bowel rest. She prefers to go home. She has an appointment to see Gastroenterology tomorrow. The patient understands that she can return to the emergency department at any time should she reconsider decision to go home or for worsening symptoms. Differential Diagnosis: Differential diagnosis considered includes chronic pancreatitis, dehydration, metabolic derangement, renal failure - Data Points Laboratory Results: Laboratory Results 11/05/18 15:55 11/05/18 15:55 11/05/18 11/05/18 11/05/18 16:00 15:55 15:55 WBC RBC Hgb Hct MCV MCH MCHC RDW Plt Count MPV Neut % (Auto) Lymph % (Auto) [place] % (Auto) Eos % (Auto) Baso % (Auto) Nucleat RBC Rel Count Absolute Neuts (auto) Absolute Lymphs (auto) Absolute Monos (auto) Absolute Eos (auto) Absolute Basos (auto) Absolute Nucleated RBC Immature Gran % Immature Gran # Sodium 136 mEq/L mEq/L (135-145) Potassium 4.1 mEq/L mEq/L (3.5-5.2) Chloride 101 mEq/L mEq/L (97-110) Carbon Dioxide 20 mEq/l L mEq/l (22-31) Anion Gap 15 mEq/L H mEq/L (6-14) BUN 10 mg/dL mg/dL (7-23) Creatinine 0.9 mg/dL mg/dL (0.6-1.0) Estimated GFR > 60 Glucose 84 mg/dL mg/dL (70-100) Calcium 10.6 mg/dL H mg/dL (8.5-10.4) Total Bilirubin 0.8 mg/dL mg/dL (0.1-1.4) Conjugated Bilirubin 0.1 mg/dL mg/dL (0.0-0.5) Unconjugated Bilirubin 0.7 mg/dL mg/dL (0.0-1.1) AST 28 IU/L IU/L (14-46) ALT 38 IU/L IU/L (9-52) Alkaline Phosphatase 106 IU/L IU/L (38-126) Total Protein 8.2 g/dL g/dL (6.3-8.2) Albumin 5.0 g/dL g/dL (3.5-5.0) Lipase 949 IU/L H IU/L (23-300) Beta HCG, Qual NEGATIVE Urine Color COLORLESS Urine Appearance CLEAR Urine pH 7.0 (5.0-7.5) Ur Specific [place] 1.002 (1.002-1.030) Urine Protein NEGATIVE (NEGATIVE) Urine Ketones 1+ H (NEGATIVE) Urine Blood NEGATIVE (NEGATIVE) Urine Nitrate NEGATIVE (NEGATIVE) Urine Bilirubin NEGATIVE (NEGATIVE) Urine Urobilinogen NEGATIVE EU EU (0.2-1.0) Ur Leukocyte Esterase NEGATIVE (NEGATIVE) Urine Glucose NEGATIVE (NEGATIVE) 11/05/18 15:55 WBC 9.16 10^3/uL 10^3/uL (3.80-9.50) RBC 4.03 10^6/uL L 10^6/uL (4.18-5.33) Hgb 12.5 g/dL L g/dL (12.6-16.3) Hct 35.7 % L % (38.0-47.0) MCV 88.6 fL fL (81.5-99.8) MCH 31.0 pg pg (27.9-34.1) MCHC 35.0 g/dL g/dL (32.4-36.7) RDW 12.3 % % (11.5-15.2) Plt Count 252 10^3/uL 10^3/uL (150-400) MPV 10.8 fL fL (8.7-11.7) Neut % (Auto) 68.6 % % (39.3-74.2) Lymph % (Auto) 23.9 % % (15.0-45.0) [place] % (Auto) 5.8 % % (4.5-13.0) Eos % (Auto) 1.2 % % (0.6-7.6) Baso % (Auto) 0.3 % % (0.3-1.7) Nucleat RBC Rel Count 0.0 % % (0.0-0.2) Absolute Neuts (auto) 6.28 10^3/uL 10^3/uL (1.70-6.50) Absolute Lymphs (auto) 2.19 10^3/uL 10^3/uL (1.00-3.00) Absolute Monos (auto) 0.53 10^3/uL 10^3/uL (0.30-0.80) Absolute Eos (auto) 0.11 10^3/uL 10^3/uL (0.03-0.40) Absolute Basos (auto) 0.03 10^3/uL 10^3/uL (0.02-0.10) Absolute Nucleated RBC 0.00 10^3/uL 10^3/uL (0-0.01) Immature Gran % 0.2 % % (0.0-1.1) Immature Gran # 0.02 10^3/uL 10^3/uL (0.00-0.10) Sodium Potassium Chloride Carbon Dioxide Anion Gap BUN Creatinine Estimated GFR Glucose Calcium Total Bilirubin Conjugated Bilirubin Unconjugated Bilirubin AST ALT Alkaline Phosphatase Total Protein Albumin Lipase Beta HCG, Qual Urine Color Urine Appearance Urine pH Ur Specific [place] Urine Protein Urine Ketones Urine Blood Urine Nitrate Urine Bilirubin Urine Urobilinogen Ur Leukocyte Esterase Urine Glucose Medications Given: Discontinued Medications Hydromorphone HCl (Dilaudid) 0.5 mg IVP EDNOW ONE Stop: 11/05/18 16:00 Last Admin: 11/05/18 16:08 Dose: 0.5 mg Sodium Chloride (Ns) 1,000 mls @ 0 mls/hr IV EDNOW ONE; Wide Open PRN Reason: Protocol Stop: 11/05/18 15:49 Last Admin: 11/05/18 15:57 Dose: 1,000 mls Ondansetron HCl (Zofran) 4 mg IVP EDNOW ONE Stop: 11/05/18 15:51 Last Admin: 11/05/18 15:57 Dose: 4 mg Departure - Departure Disposition: Home, Routine, Self-Care Clinical Impression: Chronic pancreatitis Condition: Good Instructions: Pancreatitis (ED) Additional Instructions: 1. You have been given Percocet as needed for pain. 2. Return to the ED for worsening symptoms or uncontrolled pain. 3. You have been offered admission to the hospital and declined. You can certainly return at any point time should you reconsider this decision. 4. Please follow up tomorrow with your rn prior authorization as scheduled. Referrals: Magdalena Rodarte MD [Primary Care Provider] - As per Instructions
[2018-11-05 16:11] LABS: PLATELET COUNT 252 10^3/uL (150-400)
[2018-11-05 17:32] VITALS: BP 157/101
== END 2018-11-05 18:10 | disposition home or self-care (01) ==
DX: K86.1 Other chronic pancreatitis (principal); E86.9 Volume depletion, unspecified
CPT/HCPCS: 96374; J1170; J2405